=== PATIENT | female | born 1970 | race Asian ===

== ENCOUNTER 2016-08-25 10:37 | Outpatient (CLI) | payer OTHER | END 2016-08-25 18:54 | disposition home or self-care (01) | LOC: SMA 10:37 | PROVIDERS: ATTEND Surgery | DX: N63 Unspecified lump in breast (principal); N64.89 Other specified disorders of breast; R92.2 Inconclusive mammogram | CPT/HCPCS: 76642; G0204; G0206 ==

== ENCOUNTER 2017-01-31 10:04 | Outpatient (CLI) | payer OTHER ==
[2017-01-31 10:46] LABS: BASOPHILS # (AUTO) 0.1 K/uL (0.0-0.2); BASOPHILS % (AUTO) 1.4 % (0.0-2.0); EOSINOPHILS # (AUTO) 0.1 K/uL (0.0-0.4); EOSINOPHILS % (AUTO) 0.9 % (0.0-4.0); HEMATOCRIT 29.8 % (36-48); HEMOGLOBIN 9.8 g/dL (12.0-16.0); LYMPHOCYTES # (AUTO) 1.4 K/uL (1.0-5.5); LYMPHOCYTES % (AUTO) 15.8 % (20.5-51.5); MEAN CORPUSCULAR HEMOGLOBIN 30 pg (27-31); MEAN CORPUSCULAR HGB CONC 33 % (32-36); MEAN CORPUSCULAR VOLUME 90 fL (79.0-98.0); MONOCYTES # (AUTO) 0.6 K/uL (0.0-1.0); MONOCYTES % (AUTO) 6.4 % (1.7-9.3); NEUTROPHILS # (AUTO) 6.5 K/uL (1.8-7.7); NEUTROPHILS % (AUTO) 75.5 % (40.0-70.0); PLATELET COUNT (AUTO) 284 K/uL (130-430); RED CELL DISTRIBUTION WIDTH 16.2 % (9.0-15.0); WHITE BLOOD COUNT (AUTO) 8.7 K/uL (4.8-10.8)
== END 2017-01-31 19:38 | disposition home or self-care (01) ==
LOC: SLB 10:04
DX: C50.511 Malignant neoplasm of lower-outer quadrant of right female breast (principal); C78.00 Secondary malignant neoplasm of unspecified lung; D64.81 Anemia due to antineoplastic chemotherapy; E78.5 Hyperlipidemia, unspecified
CPT/HCPCS: 36415; 85025

== ENCOUNTER 2017-02-23 11:34 | Day surgery (SDC) | payer OTHER ==
[2016-10-12 10:54] LABS: HEMOGLOBIN 12.5 g/dL (12.0-16.0); MEAN CORPUSCULAR VOLUME 88 fL (79.0-98.0); RED BLOOD CELL COUNT(AUTO) 4.23 MIL/uL (4.2-6.2); WHITE BLOOD COUNT (AUTO) 7.3 K/uL (4.8-10.8)
[2016-10-12 10:55] LABS: BASOPHILS # (AUTO) 0.1 K/uL (0.0-0.2); EOSINOPHILS # (AUTO) 0.2 K/uL (0.0-0.4); EOSINOPHILS % (AUTO) 2.3 % (0.0-4.0); LYMPHOCYTES % (AUTO) 27.3 % (20.5-51.5); MEAN CORPUSCULAR HEMOGLOBIN 30 pg (27-31); MEAN CORPUSCULAR HGB CONC 34 % (32-36); MONOCYTES # (AUTO) 0.5 K/uL (0.0-1.0); MONOCYTES % (AUTO) 6.6 % (1.7-9.3); NEUTROPHILS # (AUTO) 4.5 K/uL (1.8-7.7); NEUTROPHILS % (AUTO) 62.8 % (40.0-70.0); PLATELET COUNT (AUTO) 431 K/uL (130-430); RED CELL DISTRIBUTION WIDTH 12.1 % (9.0-15.0)
[2016-10-12 10:59] LABS: HCG,QUAL RESULT NEGATIVE (NEGATIVE)
[2016-10-12 11:15] LABS: ALBUMIN 4.3 g/dL (3.4-4.8); CREATININE 0.94 mg/dL (0.55-1.30); TOTAL BILIRUBIN 0.3 mg/dL (0.0-1.0)
[2017-02-15 13:00] LABS: HEMATOCRIT 30.9 % (36-48); HEMOGLOBIN 10.3 g/dL (12.0-16.0); MEAN CORPUSCULAR HEMOGLOBIN 31 pg (27-31); MEAN CORPUSCULAR HGB CONC 33 % (32-36); MEAN CORPUSCULAR VOLUME 92 fL (79.0-98.0); PLATELET COUNT (AUTO) 362 K/uL (130-430); RED BLOOD CELL COUNT(AUTO) 3.37 MIL/uL (4.2-6.2); RED CELL DISTRIBUTION WIDTH 15.5 % (9.0-15.0)
[2017-02-15 13:05] LABS: WHITE BLOOD COUNT (AUTO) 24.8 K/uL (4.8-10.8)
[2017-02-15 13:20] LABS: ALBUMIN 3.9 g/dL (3.4-4.8); CALCIUM 9.2 mg/dL (8.4-11.0); CREATININE 1.07 mg/dL (0.55-1.30); POTASSIUM 4.4 mmol/L (3.5-5.1); TOTAL BILIRUBIN 0.2 mg/dL (0.0-1.0)
[2017-02-15 13:45] LABS: ATYPICAL LYMPHOCYTES % 0 % (0-0); BAND % (MANUAL) 20 % (0-6); BASOPHILS % (MANUAL) 0 % (0-2); EOSINOPHILS % (MANUAL) 1 % (0-7); LYMPHOCYTES % (MANUAL) 12 % (20-46); METAMYELOCYTES % 4 % (0-0); MONOCYTES % (MANUAL) 11 % (0-11); MYELOCYTES % 1 % (0-0)
[~2017-02-23] VITALS: Ht 157.5 cm; Wt 65.8 kg
[2017-02-23] MEDS ORDERED: KETOROLAC TROMETHAMINE 30 MG VIAL IVP ONE (14:03)
[2017-02-23] MEDS ORDERED: SEVOFLURANE 15 MIN GAS INH ONE (14:03)
[2017-02-23] MEDS ORDERED: BUPIVACAINE /EPINEPHRINE/PF 0.5% 30 ML VIAL INJ ONE (14:03)
[2017-02-23] MEDS ORDERED: NS IRRIG SOLN 1000 ML IR ONE (14:03)
[2017-02-23] MEDS ORDERED: MIDAZOLAM HCL 5 MG/5 ML VIAL IVP ONE (14:03)
[2017-02-23] MEDS ORDERED: ONDANSETRON HCL 4 MG/2 ML VIAL IVP ONE (14:03)
[2017-02-23] MEDS ORDERED: BUPIVACAINE LIPOSOME/PF 266 MG/20 ML VIAL INFIL ONE ×2 (14:03→15:00)
[2017-02-23] MEDS ORDERED: PROPOFOL 200MG/ 20ML VIAL (DIPRIVAN) IV ONE (14:03)
[2017-02-23] MEDS ORDERED: LR 1,000 ML IV.SOLN IV ONE (14:03)
[2017-02-23] MEDS ORDERED: BUPIVACAINE /PF 0.5% 30 ML VIAL INJ ONE (14:03)
[2017-02-23] MEDS ORDERED: fentaNYL CITRATE/PF 100 MCG/2 ML AMP IVP ONE (14:03)
[2017-02-23] MEDS ORDERED: LR 1,000 ML IV SCH (14:56)
[2017-02-23] MEDS ORDERED: MEPERIDINE HCL/PF 25 MG/ML DISP.SYRIN IVP PRN ×2 (15:00)
[2017-02-23] MEDS ORDERED: HYDROmorphone 1 MG INJ. 1 MG/ML AMPUL IVP PRN (15:00)
[2017-02-23] MEDS ORDERED: ONDANSETRON HCL 4 MG/2 ML VIAL IVP PRN ×2 (15:00→17:30)
[2017-02-23] MEDS ORDERED: KETOROLAC TROMETHAMINE 30 MG VIAL IVP PRN (15:00)
[2017-02-23] MEDS ORDERED: HYDROmorphone 2 MG/ML VIAL IVP PRN ×2 (15:00)
[2017-02-23] MEDS ORDERED: ACETAMINOPHEN 325 MG TABLET PO PRN (17:30)
[2017-02-23] MEDS ORDERED: HYDROcodone/ACETAMIN 10-325 MG TAB PO PRN (17:30)
[2017-02-23] MEDS ORDERED: MORPHINE 2 MG/ML INJ. SYRINGE IVP PRN (17:30)
[2017-02-23] MEDS ORDERED: LR 500 ML IV ONE (17:30)
[2017-02-23] MEDS ORDERED: HYDROcodone/ACETAMIN 5-325 MG TAB (NORCO/ VICODIN) PO PRN (17:30)
[2017-02-23 18:15] VITALS: BP_SYST 117
[2017-02-23 20:10] VITALS: BP_SYST 114
[2017-02-23] MEDS ORDERED: CEFAZOLIN 2 GM IVPB PREMIX 100 ML IV ONE (20:17)
[2017-02-23 20:19] VITALS: BP_SYST 114
[2017-02-23] MEDS: ceFAZolin SODIUM 2 GM in D5W 100 ML IV SCH (21:13)
[2017-02-23] MEDS: NORMAL SALINE 5 ML DISP.SYRIN IVF SCH (22:00)
[2017-02-23] MEDS ORDERED: HYDR-1189 PO (22:08)
[2017-02-23 23:30] VITALS: BP_SYST 100
[2017-02-24 04:14] VITALS: BP_SYST 94
[2017-02-24] MEDS: ceFAZolin SODIUM 2 GM in D5W 100 ML IV SCH (05:58)
[2017-02-24] MEDS: NORMAL SALINE 5 ML DISP.SYRIN IVF SCH (06:00)
[2017-02-24 06:42] LABS: CREATININE 0.91 mg/dL (0.55-1.30); POTASSIUM 3.9 mmol/L (3.5-5.1)
[2017-02-24 06:49] LABS: BASOPHILS % (AUTO) 0.2 % (0.0-2.0); HEMATOCRIT 28.9 % (36-48); LYMPHOCYTES # (AUTO) 0.8 K/uL (1.0-5.5); LYMPHOCYTES % (AUTO) 10.8 % (20.5-51.5); MEAN CORPUSCULAR HEMOGLOBIN 28 pg (27-31); MEAN CORPUSCULAR HGB CONC 31 % (32-36); MEAN CORPUSCULAR VOLUME 91 fL (79.0-98.0); MONOCYTES # (AUTO) 0.3 K/uL (0.0-1.0); MONOCYTES % (AUTO) 4.1 % (1.7-9.3); NEUTROPHILS # (AUTO) 6.1 K/uL (1.8-7.7); NEUTROPHILS % (AUTO) 84.9 % (40.0-70.0); PLATELET COUNT (AUTO) 296 K/uL (130-430); RED BLOOD CELL COUNT(AUTO) 3.17 MIL/uL (4.2-6.2); RED CELL DISTRIBUTION WIDTH 15.4 % (9.0-15.0); WHITE BLOOD COUNT (AUTO) 7.2 K/uL (4.8-10.8)
[2017-02-24] MEDS ORDERED: CEFAZOLIN 1 GM IVPB PREMIX 50 ML IV ONE (07:00)
[2017-02-24 08:13] VITALS: BP_SYST 108
[2017-02-24 08:16] VITALS: BP_SYST 108
== END 2017-02-24 08:35 | disposition home or self-care (01) ==
LOC: SDS 11:34 → SMU 11:42 → SDS 02-24 08:35
PROVIDERS: ATTEND Surgery
DX: C50.911 Malignant neoplasm of unspecified site of right female breast (principal); Z88.8 Allergy status to other drugs, medicaments and biological substances
CPT/HCPCS: 19307; 36415 ×3; 71020; 80048; 80053 ×2; 84703 ×2; 85007; 85025 ×2; 85027; 88309; 93005; C9290; J0690 ×2; J1885; J2250; J2405; J2704; J3010; J3490; J7050; J7120; 88307; J7060

== ENCOUNTER 2019-02-21 09:33 | Outpatient (CLI) | payer OTHER ==
[~2019-02-21 09:33] MED LIST: HYDR-1189 PO
== END 2019-02-21 20:38 | disposition home or self-care (01) ==
LOC: SMA 09:33
DX: C50.511 Malignant neoplasm of lower-outer quadrant of right female breast (principal); C78.00 Secondary malignant neoplasm of unspecified lung; D64.81 Anemia due to antineoplastic chemotherapy; R92.2 Inconclusive mammogram; E78.5 Hyperlipidemia, unspecified; Z90.11 Acquired absence of right breast and nipple
CPT/HCPCS: 76642; 77065

== ENCOUNTER 2019-04-05 06:15 | Day surgery (SDC) | payer OTHER ==
[~2019-04-05] VITALS: Ht 157.5 cm; Wt 61.7 kg
[2019-04-05 06:30] VITALS: BP_SYST 127
[2019-04-05] MEDS ORDERED: MIDAZOLAM HCL 5 MG/5 ML VIAL ONE (06:34)
[2019-04-05] MEDS ORDERED: SIMETHICONE 40 MG/0.6 ML ML ONE (06:36)
[2019-04-05] MEDS ORDERED: BENZOCAINE 20% 0.5mL UD SPRAY MM ONE (07:11)
[2019-04-05] MEDS: fentaNYL CITRATE/PF 100 MCG/2 ML AMP ONE ×3 (07:25→07:32)
[2019-04-05] MEDS: MIDAZOLAM HCL 5 MG/5 ML VIAL ONE ×4 (07:25→07:44)
== END 2019-04-05 09:00 | disposition home or self-care (01) ==
LOC: SDS 06:15 → SMU 06:17 → SDS 09:00
PROVIDERS: ATTEND Internal Medicine Gastroenterology
DX: D64.9 Anemia, unspecified (principal); K29.50 Unspecified chronic gastritis without bleeding; K57.30 Diverticulosis of large intestine without perforation or abscess without bleeding; K64.8 Other hemorrhoids; Z85.3 Personal history of malignant neoplasm of breast
CPT/HCPCS: 43239; 45378; 88305; 88312; 88313; 99152; G0378; J2250; J3010

== ENCOUNTER 2020-08-20 10:16 | Outpatient (CLI) | payer OTHER | END 2020-08-20 20:49 | disposition home or self-care (01) | LOC: SMA 10:16 | DX: C50.511 Malignant neoplasm of lower-outer quadrant of right female breast (principal); C78.00 Secondary malignant neoplasm of unspecified lung; E78.5 Hyperlipidemia, unspecified; D64.81 Anemia due to antineoplastic chemotherapy | CPT/HCPCS: 77065; 77067 ==

== ENCOUNTER 2020-11-28 07:50 | Outpatient (CLI) | payer OTHER ==
[~2020-11-28 07:50] MED LIST changes: -HYDR-1189 PO; +HYDR-3919 PO
[2020-11-28 08:38] LABS: BASOPHILS # (AUTO) 0.1 K/uL (0.0-0.2); EOSINOPHILS # (AUTO) 0.2 K/uL (0.0-0.4); EOSINOPHILS % (AUTO) 4.3 % (0.0-4.0); HEMOGLOBIN 12.6 g/dL (12.0-16.0); LYMPHOCYTES # (AUTO) 1.8 K/uL (1.0-5.5); LYMPHOCYTES % (AUTO) 33.1 % (20.5-51.5); MEAN CORPUSCULAR HEMOGLOBIN 29 pg (27-31); MEAN CORPUSCULAR HGB CONC 33 % (32-36); MEAN CORPUSCULAR VOLUME 89 fL (79.0-98.0); MONOCYTES # (AUTO) 0.4 K/uL (0.0-1.0); MONOCYTES % (AUTO) 7.9 % (1.7-9.3); NEUTROPHILS # (AUTO) 2.9 K/uL (1.8-7.7); NEUTROPHILS % (AUTO) 53.7 % (40.0-70.0); PLATELET COUNT (AUTO) 350 K/uL (130-430); RED BLOOD CELL COUNT(AUTO) 4.29 MIL/uL (4.2-6.2); RED CELL DISTRIBUTION WIDTH 12.9 % (9.0-15.0); WHITE BLOOD COUNT (AUTO) 5.4 K/uL (4.8-10.8)
[2020-11-28 08:58] LABS: ALBUMIN 4.1 g/dL (3.4-4.8); CREATININE 0.84 mg/dL (0.55-1.30); POTASSIUM 3.8 mmol/L (3.5-5.1); TOTAL BILIRUBIN 0.2 mg/dL (0.0-1.0)
== END 2020-11-28 20:24 | disposition home or self-care (01) ==
LOC: SLB 07:50
DX: C50.511 Malignant neoplasm of lower-outer quadrant of right female breast (principal); C78.00 Secondary malignant neoplasm of unspecified lung; D64.81 Anemia due to antineoplastic chemotherapy; E78.5 Hyperlipidemia, unspecified
CPT/HCPCS: 36415; 80053; 85025

== ENCOUNTER 2021-05-26 09:47 | Outpatient (CLI) | payer OTHER ==
[2021-05-26 10:38] LABS: BASOPHILS % (AUTO) 0.8 % (0.0-2.0); EOSINOPHILS # (AUTO) 0.4 K/uL (0.0-0.4); EOSINOPHILS % (AUTO) 7.4 % (0.0-4.0); HEMATOCRIT 37.9 % (36-48); HEMOGLOBIN 12.6 g/dL (12.0-16.0); LYMPHOCYTES # (AUTO) 1.8 K/uL (1.0-5.5); LYMPHOCYTES % (AUTO) 34.1 % (20.5-51.5); MEAN CORPUSCULAR HEMOGLOBIN 29 pg (27-31); MEAN CORPUSCULAR HGB CONC 33 % (32-36); MEAN CORPUSCULAR VOLUME 88 fL (79.0-98.0); MONOCYTES # (AUTO) 0.4 K/uL (0.0-1.0); MONOCYTES % (AUTO) 8.2 % (1.7-9.3); NEUTROPHILS # (AUTO) 2.6 K/uL (1.8-7.7); NEUTROPHILS % (AUTO) 49.5 % (40.0-70.0); PLATELET COUNT (AUTO) 342 K/uL (130-430); RED CELL DISTRIBUTION WIDTH 13.4 % (9.0-15.0); WHITE BLOOD COUNT (AUTO) 5.3 K/uL (4.8-10.8)
[2021-05-26 10:46] LABS: ALBUMIN 4.5 g/dL (3.4-4.8); CALCIUM 9.9 mg/dL (8.4-11.0); CREATININE 0.88 mg/dL (0.55-1.30); POTASSIUM 4.5 mmol/L (3.5-5.1); TOTAL BILIRUBIN 0.4 mg/dL (0.0-1.0)
== END 2021-05-26 19:36 | disposition home or self-care (01) ==
LOC: SLB 09:47
PROVIDERS: ATTEND Specialist
DX: C50.511 Malignant neoplasm of lower-outer quadrant of right female breast (principal); C78.00 Secondary malignant neoplasm of unspecified lung; E78.5 Hyperlipidemia, unspecified; D64.81 Anemia due to antineoplastic chemotherapy
CPT/HCPCS: 36415; 80053; 85025